=== PATIENT | female | born 1940 | race Caucasian/White ===

== ENCOUNTER 2025-01-08 14:46 | Emergency (ER) | payer MEDICARE, OTHER ==
[~2025-01-08] VITALS: Ht 147.3 cm; Wt 69.9 kg
[2025-01-08 15:03] LABS: BLOOD/HGB, URINE NEGATIVE (Negative); KETONE, URINE NEGATIVE (Negative); LEUK ESTERASE, URINE SMALL (negative); NITRITE, URINE POSITIVE (negative)
[2025-01-08] MEDS ORDERED: ATORVASTATIN CA40 MG PO (15:09)
[2025-01-08] MEDS ORDERED: PREGABALIN25 MG PO (15:09)
[2025-01-08] MEDS ORDERED: POTASSIUM CHLOR8 ME1 PO (15:09)
[2025-01-08] MEDS ORDERED: ALENDRONATE SOD70 MG PO (15:09)
[2025-01-08] MEDS ORDERED: COLCRYS0.6 MG PO (15:09)
[2025-01-08] MEDS ORDERED: DIPHENOXYLATE-1 EACH PO (15:10)
[2025-01-08] MEDS ORDERED: TORSEMIDE10 MG PO (15:10)
[2025-01-08] MEDS ORDERED: SERTRALINE HCL100 MG PO (15:10)
[2025-01-08] MEDS ORDERED: HUMALOG100 UNIT/2 SUB-Q (15:10)
[2025-01-08] MEDS ORDERED: LISINOPRIL20 MG PO (15:10)
[2025-01-08] MEDS ORDERED: OXYCODONE-ACET1 EAC1 PO (15:10)
[2025-01-08] MEDS ORDERED: OMEPRAZOLE20 MG PO (15:10)
[2025-01-08] MEDS ORDERED: SOLIFENACIN SUC10 MG PO (15:11)
[2025-01-08] MEDS ORDERED: VENTOLIN HFA18 GM INH (15:11)
[2025-01-08] MEDS ORDERED: FISH OIL 1,201200 MG PO ×2 (15:12→15:51)
[2025-01-08] MEDS ORDERED: CINNAMON500 MG PO (15:12)
[2025-01-08 15:13] LABS: EPITHELIAL CELLS, URINE SQUAMOUS 2+ /lpf (0-1+)
[2025-01-08 15:14] LABS: CRYSTALS, URINE NONE SEEN (0-1+); REFLEX CULTURE, URINE No (No)
[2025-01-08 15:16] LABS: BACTERIA, URINE 3+ /hpf (negative); CASTS, URINE HYALINE 1+ \\lpf
[2025-01-08] MEDS ORDERED: LANTUS100 UNITS/ SUB-Q (15:52)
[2025-01-08] MEDS ORDERED: NOVOLOG100 UNIT/2 SUB-Q (15:53)
[2025-01-08] MEDS ORDERED: NITROFURANTOIN MONOHYD MACROCR 100 MG CAP PO ONE (17:00)
[2025-01-08] MEDS ORDERED: MACROBID 100 M100 MG PO (17:09)
[2025-01-08 17:14] VITALS: BP 156/69
== END 2025-01-08 17:14 | disposition home or self-care (01) ==
LOC: ED 14:46
PROVIDERS: Emergency Medicine
DX: N39.0 Urinary tract infection, site not specified (principal); E11.9 Type 2 diabetes mellitus without complications; Z79.4 Long term (current) use of insulin; Z79.899 Other long term (current) drug therapy
CPT/HCPCS: 81001; 99283

== ENCOUNTER 2025-01-29 12:06 | Emergency (ER) | payer MEDICARE, OTHER ==
[~2025-01-29] VITALS: Ht 147.3 cm; Wt 75.0 kg
[~2025-01-29 12:06] MED LIST: ALENDRONATE SOD70 MG PO; ATORVASTATIN CA40 MG PO; CINNAMON500 MG PO; COLCRYS0.6 MG PO; DIPHENOXYLATE-1 EACH PO; FISH OIL 1,201200 MG PO; HUMALOG100 UNIT/2 SUB-Q; LANTUS100 UNITS/ SUB-Q; LISINOPRIL20 MG PO; MACROBID 100 M100 MG PO; NOVOLOG100 UNIT/2 SUB-Q; OMEPRAZOLE20 MG PO; OXYCODONE-ACET1 EAC1 PO; POTASSIUM CHLOR8 ME1 PO; PREGABALIN25 MG PO; SERTRALINE HCL100 MG PO; SOLIFENACIN SUC10 MG PO; TORSEMIDE10 MG PO; VENTOLIN HFA18 GM INH
--- OUTSIDE RECORDS SUMMARY | 2025-01-29 12:12 | XMS ---
PreManage Notification: YOMI TOSCANO Security Chinchilla Farmer Events No recent Security Events currently on file CRITERIA MET - [facility] - 2 Visits in 30 Days CARE PROVIDERS DEREK SERRA Internal Medicine Current PHONE: Unknown CANDY WADE Internal Medicine Current PHONE: [phone] SANTOS RICHARD Nurse Practitioner: Current PHONE: [phone] [facility] has no Care Guidelines for this patient. Alivia VISIT COUNT (12 MO.) 2 [facility]ANNA[facility] [place] [facility] [place] [facility] TOTAL 4 NOTE: Visits indicate total known visits. 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 unable to walk 03/15/2024 08:27 Zoe ELAINE TYPE: Emergency COMPLAINT: - Back Pain, "[place] a pop" INPATIENT VISIT TRACKING (12 MO.) 06/08/2024 01:42 Zoe ELAINE TYPE: Acute Care COMPLAINT: - lt sided fall. unable to walk DIAGNOSES: 1. Stable burst fracture of unspecified lumbar vertebra, initial encounter for closed fracture [email or web address]
[2025-01-29] MEDS ORDERED: SODIUM CHLORIDE 0.9% 500 ML IV ONE (12:30)
[2025-01-29 12:35] LABS: BASOPHILS 0.3 % (0.1-1.2); EOSINOPHILS 0.3 % (0.7-5.8); LYMPHOCYTES 19.9 % (19.3-51.7); MCH 32.3 PG (25.6-32.2); MCHC 32.0 g/dL (32.2-35.5); MCV 101.0 fL (79.4-94.8); MONOCYTES 4.9 % (4.7-12.5); NEUTROPHILS 74.2 % (34.0-71.1); RBC 3.87 M/uL (3.93-5.22)
[2025-01-29 12:52] LABS: ALT (SGPT) 30.0 U/L (14-59); AST (SGOT) 37.0 U/L (15-37); GLOMERULAR FILTRATION RATE,EST 47.0 mL/min (>60); PROTEIN, TOTAL 6.0 g/dL (6.4-8.2); UREA NITROGEN 23.0 mg/dL (7-18)
[2025-01-29] MEDS ORDERED: LANREOTIDE (13:05)
[2025-01-29] MEDS ORDERED: SODIUM CHLORIDE 0.9% 500 ML IV PRN (13:15)
[2025-01-29] MEDS ORDERED: DEXTROSE 5% IV SCH (13:15)
[2025-01-29 13:38] LABS: BLOOD/HGB, URINE NEGATIVE (Negative); KETONE, URINE NEGATIVE (Negative); LEUK ESTERASE, URINE SMALL (negative); NITRITE, URINE POSITIVE (negative)
[2025-01-29 13:43] LABS: CRYSTALS, URINE NONE SEEN (0-1+); EPITHELIAL CELLS, URINE SQUAMOUS 2+ /lpf (0-1+)
[2025-01-29 13:44] LABS: BACTERIA, URINE 4+ /hpf (negative); CASTS, URINE NONE SEEN \\lpf; REFLEX CULTURE, URINE No (No)
[2025-01-29] MEDS ORDERED: DEXTROSE 50% 50 ML SYR IV ONE (13:45)
[2025-01-29 15:29] LABS: BLOOD/HGB, URINE NEGATIVE (Negative); KETONE, URINE NEGATIVE (Negative); LEUK ESTERASE, URINE SMALL (negative); NITRITE, URINE POSITIVE (negative)
[2025-01-29 16:15] LABS: BACTERIA, URINE 4+ /hpf (negative); CASTS, URINE NONE SEEN \\lpf; CRYSTALS, URINE NONE SEEN (0-1+); EPITHELIAL CELLS, URINE SQUAMOUS 1+ /lpf (0-1+); REFLEX CULTURE, URINE Yes (No)
[2025-01-29] MEDS ORDERED: CEFDINIR300 MG PO (17:39)
[2025-01-29] MEDS ORDERED: NYSTOP60 GM TOP (17:39)
[2025-01-29 17:49] VITALS: BP 138/78
== END 2025-01-29 17:49 | disposition home or self-care (01) ==
LOC: ED 12:06
PROVIDERS: Emergency Medicine
DX: N39.0 Urinary tract infection, site not specified (principal); E11.649 Type 2 diabetes mellitus with hypoglycemia without coma; Z79.899 Other long term (current) drug therapy; Z79.4 Long term (current) use of insulin
CPT/HCPCS: 36415; 51701; 71045; 80053; 81001; 83735; 85025; 87088; 96361; 96365; 96375; 96376; 99284-25; J0696; J2405; J7040

== ENCOUNTER 2025-04-18 12:06 | Emergency (ER) | payer MEDICARE, OTHER ==
[~2025-04-18] VITALS: Ht 147.3 cm; Wt 75.0 kg
--- OUTSIDE RECORDS SUMMARY | ~2025-04-18 | XMS | Continuity of Care Document ---
Demographics + + + | Address | [address] | | | [place] [address] | + + + | Preferred Language | Unknown | + + + | Marital Status | | + + + | Spiritism Affiliation | Unknown | + + + | Race | White | + + + | Ethnic Group | Not or | + + + Author + + + | Author | [facility] | + + + | Organization | [facility] | + + + | Address | [address] | | | [place] [address] | + + + | Phone | | + + + Care Team Providers + + + + | Care Digital Court Reporter Name | Role | Phone | + + + + Unavailable | Unavailable | + + + + Unavailable | Unavailable | + + + + Allergies No information. Encounters No information. Functional Status No information. Immunizations + + + + | date | description | facility | + + + + | (no date) | No vaccine administered | [facility] | | | | [facility] | + + + + Medications + + + + | date | description | facility | + + + + | (no date) | acetaminophen 325 MG / | [facility] | | | oxycodone hydrochloride 5 | [facility] | | | MG Oral Tab | | + + + + | (no date) | atropine sulfate 0.025 MG | [facility] | | | / diphenoxylate | [facility] | | | hydrochloride 2.5 | | + + + + | (no date) | 3 ML insulin lispro 100 | [facility] | | | UNT/ML Pen Injector | [facility] | | | [Humalog] | | + + + + | (no date) | omeprazole 20 MG Delayed | [facility] | | | Release Oral Capsule | [facility] | + + + + | (no date) | torsemide 10 MG Oral | [facility] | | | Tablet | [facility] | + + + + | 2025-01-29 00:00 | cefdinir 300 MG Oral | [facility] | | | Capsule | [facility] | + + + + | 2025-01-29 00:00 | nystatin 100 UNT/MG | [facility] | | | Topical Powder [Nystop] | [facility] | + + + + | (no date) | insulin glargine 100 | [facility] | | | UNT/ML Injectable Solution | [facility] | | | [Lantus] | | + + + + | (no date) | potassium chloride 8 MEQ | [facility] | | | Extended Release Oral | [facility] | | | Tablet | | + + + + | (no date) | sertraline 100 MG Oral | [facility] | | | Tablet | [facility] | + + + + | (no date) | lisinopril 20 MG Oral | [facility] | | | Tablet | [facility] | + + + + | (no date) | insulin aspart, human 100 | [facility] | | | UNT/ML Injectable Solution | [facility] | | | [NovoLo | | + + + + | (no date) | cinnamon bark 500 MG Oral | [facility] | | | Capsule | [facility] | + + + + | (no date) | solifenacin succinate 10 | [facility] | | | MG Oral Tablet | [facility] | + + + + | (no date) | pregabalin 25 MG Oral | [facility] | | | Capsule | [facility] | + + + + | (no ) | atorvastatin 40 MG Oral | [facility] | | | Tablet | [facility] | + + + + | (no date) | 0.2 ML lanreotide 300 | [facility] | | | MG/ML Prefilled Syringe | [facility] | + + + + | (no ) | colchicine 0.6 MG Oral | [facility] | | | Tablet [Colcrys] | [facility] | + + + + | (no ) | [id number] 200 ACTUAT | [facility] | | | albuterol 0.09 MG/ACTUAT | [facility] | | | Metered Dose I | | + + + + | (no ) | alendronic acid 70 MG Oral | [facility] | | | Tablet | [facility] | + + + + Problems + + + + | date | description | facility | + + + + | 2025-01-29 00:00 | Hypoglycemia | [facility] | | | | [facility] | + + + + Procedures No information. Results/Labs +--------+--------+ +---------+--------+---------+ | test | date | facility | value | unit | notes | +--------+--------+ +---------+--------+---------+ + + | Result panel 1 | + + + + + +--------+ + + | Blood | 2025-01-29 | | 7.75 | (missing) | (missing) | | leukocytes | 12:27 | [facility] | | | | | automated | [facility] count | [facility] | | | | | (number/volu | | Hospital | | | | | me) | | | | | | + + + +--------+ + + + + | Result panel 2 | + + + + + +--------+ + + | Blood | 2025-01-29 | | 3.87 | (missing) | (missing) | | erythrocytes | 12:27 | [facility] | | | | | automated | [facility] | count | | [facility] | | | | | (number/volu | | Hospital | | | | | me) | | | | | | + + + +--------+ + + + + | Result panel 3 | + + + + + +--------+ + + | Blood | 2025-01-29 | | 12.5 | (missing) | (missing) | | hemoglobin | 12:27 | [facility] | | | | | measurement | | [facility] | | | | (mass/volume | | [facility] | | | | ) | | [facility] | | | | + + + +--------+ + + + + | Result panel 4 | + + + + + +--------+ + + | Automated | 2025-01-29 | | 39.1 | (missing) | (missing) | | blood | 12:27 | [facility] | | | | | hematocrit | [facility] | | [facility] | | | | + + + +--------+ + + + + | Result panel 5 | + + + + + +---------+ + + | Automated | 2025-01-29 | | 101.0 | (missing) | (missing) | | erythrocyte | 12:27 | [facility] | | | | | mean | | [facility] | | | | | corpuscular | | [facility] | | | | volume | | [facility] | | | | + + + +---------+ + + + + | Result panel 6 | + + + + + +--------+ + + | Automated | 2025-01-29 | | 32.3 | (missing) | (missing) | | erythrocyte | 12:27 | [facility] | | | | | mean | | - [facility] | | | | | corpuscular | | [facility] | | | | | hemoglobin | | Hospital | | | | | (mass per | | | | | | | erythrocyte) | | | | | | | | | | | | | + + + +--------+ + + + + | Result panel 7 | + + + + + +--------+ + + | Automated | 2025-01-29 | | 32.0 | (missing) | (missing) | | erythrocyte | 12:27 | [facility] | | | | | mean | | - [facility] | | | | | corpuscular | | [facility] | | | | | hemoglobin | | Hospital | | | | | concentratio | | | | | | | n | | | | | | | measurement | | | | | | | (mass/volume | | | | | | | ) | | | | | | + + + +--------+ + + + + | Result panel 8 | + + + + + +-------+ + + | Automated | 2025-01-29 | | 271 | (missing) | (missing) | | blood | 12:27 | [facility] | | | | | platelet | [facility] | count | | [facility] | | | | | (count/volum | | Hospital | | | | | e) | | | | | | + + + +-------+ + + + + | Result panel 9 | + + + + + +--------+ + + | Automated | 2025-01-29 | | 74.2 | (missing) | (missing) | | blood | 12:27 | [facility] | | | | | neutrophil | | [facility] | | | | | count as | | [facility] | | | | | percentage | | Hospital | | | | | of total | | | | | | | leukocytes | | | | | | + + + +--------+ + + + + | Result panel 10 | + + + + + +--------+ + + | Automated | 2025-01-29 | | 19.9 | (missing) | (missing) | | blood | 12:27 | [facility] | | | | | lymphocyte | | - [facility] | | | | | count as | | [facility] | | | | | percentage | | Hospital | | | | | ot total | | | | | | | leukocytes | | | | | | + + + +--------+ + + + + | Result panel 11 | + + + + + +-------+ + + | Automated | 2025-01-29 | | 4.9 | (missing) | (missing) | | blood | 12:27 | [facility] | | | | | monocyte | | - [facility] | | | | | count as | | [facility] | | | | | percentage | | Hospital | | | | | of total | | | | | | | leukocytes | | | | | | + + + +-------+ + + + + | Result panel 12 | + + + + + +-------+ + + | Automated | 2025-01-29 | | 0.3 | (missing) | (missing) | | blood | 12:27 | [facility] | | | | | eosinophil | | - [facility] | | | [facility] | count as | | [facility] | | | | | percentage | | Hospital | | | | | of total | | | | | | | leukocytes | | | | | | + + + +-------+ + + + + | Result panel 13 | + + + + + +-------+ + + | Automated | 2025-01-29 | | 0.3 | (missing) | (missing) | | blood | 12:27 | [facility] | | | | | basophil | | - [facility] | | [facility] | count as | | [facility] | | | | | percentage | | Hospital | | | | | of total | | | | | | | leukocytes | | | | | | + + + +-------+ + + + + | Result panel 14 | + + + + + +------+ + + | Serum or | 2025-01-29 | | 61 | (missing) | (missing) | | plasma | 12:27 | [facility] | | | | | glucose | | - [facility] | | [facility] | measurement | | [facility] | | | | | (mass/volume | | Hospital | | | | | ) | | | | | | + + + +------+ + + + + | Result panel 15 | + + + + + +------+ + + | Serum or | 2025-01-29 | | 23 | (missing) | (missing) | | plasma urea | 12:27 | [facility] | | | | | nitrogen | | - [facility] | | [facility] | measurement | | [facility] | | | | | (mass/volume | | Hospital | | | | | ) | | | | | | + + + +------+ + + + + | Result panel 16 | + + + + + +--------+ + + | Serum or | 2025-01-29 | | 1.16 | (missing) | (missing) | | plasma | 12:27 | [facility] | | | | | creatinine | | - [facility] | | | | | measurement | | [facility] | | | | | (mass/volume | | Hospital | | | | | ) | | | | | | + + + +--------+ + + + + | Result panel 17 | + + + + + +------+ + + | Glomerular | 2025-01-29 | | 47 | (missing) | (missing) | | filtration | 12:27 | [facility] | | | | | rate/1.73 sq | | - [facility] | | | | | M.predicted | | [facility] | | | | | [Volume | | Hospital | | | | | Rate/Area] | | | | | | | inSerum, | | | | | | | Plasma or | | | | | | | Blood by | | | | | | | Creatinine-b | | | | | | | ased formula | | | | | | | (CKD-EPI | | | | | | | 2020) | | | | | | + + + +------+ + + + + | Result panel 18 | + + + + + +---------+ + + | Serum or | 2025-01-29 | | 19.82 | (missing) | (missing) | | plasma urea | 12:27 | [facility] | | | | | nitrogen/cre | | - [facility] | | | | | atinine mass | | [facility] | | | | | ratio | | Hospital | | | | + + + +---------+ + + + + | Result panel 19 | + + + + + +-------+ + + | Serum or | 2025-01-29 | | 140 | (missing) | (missing) | | plasma | 12:27 | [facility] | | | | | sodium | | - [facility] | | | | | measurement | | [facility] | | | | | (moles/volum | | Hospital | | | | | e) | | | | | | + + + +-------+ + + + + | Result panel 20 | + + + + + +-------+ + + | Serum or | 2025-01-29 | | 3.9 | (missing) | (missing) | | plasma | 12:27 | [facility] | | | | | potassium | | - [facility] | | | | | measurement | | [facility] | | | | | (moles/volum | | Hospital | | | | | e) | | | | | | + + + +-------+ + + + + | Result panel 21 | + + + + + +-------+ + + | Serum or | 2025-01-29 | | 105 | (missing) | (missing) | | plasma | 12:27 | [facility] | | | | | chloride | | - [facility] | | | | | measurement | | [facility] | | | | | (moles/volum | | Hospital | | | | | e) | | | | | | + + + +-------+ + + + + | Result panel 22 | + + + + + +------+ + + | Serum or | 2025-01-29 | | 28 | (missing) | (missing) | | plasma | 12:27 | [facility] | | | | | carbon | | - [facility] | | | | | dioxide, | | [facility] | | | | | total | | Hospital | | | | | measurement | | | | | | | (moles/volum | | | | | | | e) | | | | | | + + + +------+ + + + + | Result panel 23 | + + + + + +--------+ + + | Serum or | 2025-01-29 | | 10.9 | (missing) | (missing) | | plasma anion | 12:27 | [facility] | | | | | gap 4 | [facility] | | | | | | [facility] | | | | + + + +--------+ + + + + | Result panel 24 | + + + + + +-------+ + + | Serum or | 2025-01-29 | | 8.3 | (missing) | (missing) | | plasma | 12:27 | [facility] | | | | | calcium | | - [facility] | | | | | measurement | | [facility] | | | | | (mass/volume | | Hospital | | | | | ) | | | | | | + + + +-------+ + + + + | Result panel 25 | + + + + + +-------+ + + | Serum or | 2025-01-29 | | 2.0 | (missing) | (missing) | | plasma | 12:27 | [facility] | | | | | magnesium | | - [facility] | | | | | measurement | | [facility] | | | | | (mass/volume | | Hospital | | | | | ) | | | | | | + + + +-------+ + + + + | Result panel 26 | + + + + + +-------+ + + | Serum or | 2025-01-29 | | 6.0 | (missing) | (missing) | | plasma | 12:27 | [facility] | | | | | protein | | - [facility] | | | | | measurement | | [facility] | | | | | (mass/volume | | Hospital | | | | | ) | | | | | | + + + +-------+ + + + + | Result panel 27 | + + + + + +-------+ + + | Serum or | 2025-01-29 | | 2.7 | (missing) | (missing) | | plasma | 12:27 | [facility] | | | | | albumin | | - [facility] | | | | | measurement | | [facility] | | | | | (mass/volume | | Hospital | | | | | ) | | | | | | + + + +-------+ + + + + | Result panel 28 | + + + + + +-------+ + + | Serum | 2025-01-29 | | 3.3 | (missing) | (missing) | | globulin | 12:27 | [facility] | | | | | measurement | | - [facility] | | | | | (mass/volume | | [facility] | | | | | ) | | Hospital | | | | + + + +-------+ + + + + | Result panel 29 | + + + + + +--------+ + + | Serum or | 2025-01-29 | | 0.82 | (missing) | (missing) | | plasma | 12:27 | [facility] | | | | | albumin/glob | | - [facility] | | | | | ulin mass | | [facility] | | | | | ratio | | Hospital | | | | + + + +--------+ + + + + | Result panel 30 | + + + + + +-------+ + + | Serum or | 2025-01-29 | | 0.6 | (missing) | (missing) | | plasma total | 12:27 | [facility] | | | | | bilirubin | | - [facility] | | | | | measurement | | [facility] | | | | | (mass/volume | | Hospital | | | | | ) | | | | | | + + + +-------+ + + + + | Result panel 31 | + + + + + +------+ + + | Serum or | 2025-01-29 | | 37 | (missing) | (missing) | | plasma | 12:27 | [facility] | | | | | aspartate | | - [facility] | | | | | aminotransfe | | [facility] | | | | | rase | | Hospital | | | | | measurement | | | | | | | (enzymatic | | | | | | | activity/vol | | | | | | | ume) | | | | | | + + + +------+ + + + + | Result panel 32 | + + + + + +------+ + + | Serum or | 2025-01-29 | | 30 | (missing) | (missing) | | plasma | 12:27 | [facility] | | | | | alanine | | - [facility] | | | | | aminotransfe | | [facility] | | | | | rase | | Hospital | | | | | measurement | | | | | | | (enzymatic | | | | | | | activity/vol | | | | | | | ume) | | | | | | + + + +------+ + + + + | Result panel 33 | + + + + + +-------+ + + | Serum or | 2025-01-29 | | 180 | (missing) | (missing) | | plasma | 12:27 | [facility] | | | | | alkaline | | - [facility] | | | | | phosphatase | | [facility] | | | | | measurement | | Hospital | | | | | (enzymatic | | | | | | | activity/vol | | | | | | | ume) | | | | | | + + + +-------+ + + + + | Result panel 34 | + + + + + + + + + | Protein | 2025-01-29 | | NEGATIVE | (missing) | (missing) | | urine test | 14:30 | [facility] | | | | | strip | | - [facility] | | | | | | | [facility] | | | | | | [facility] | | | | + + + + + + + + + | Result panel 35 | + + + + + + + + + | | 2025-01-29 | | NORMAL | (missing) | (missing) | | Urobilinogen | 14:30 | [facility] | | | | | | | - [facility] | | | | | [Mass/volume | | [facility] | | | | | ] in Urine | | Hospital | | | | | by Test | | | | | | | strip | | | | | | + + + + + + + + + | Result panel 36 | + + + + + + + + + | Urine | 2025-01-29 | | POSITIVE | (missing) | (missing) | | nitrite | 14:30 | [facility] | | | | | detection by | | - [facility] | | | | | test strip | | [facility] | | | | | | [facility] | | | | + + + + + + + + + | Result panel 37 | + + + + + +---------+ + + | Urine | 2025-01-29 | | SMALL | (missing) | (missing) | | leukocyte | 14:30 | [facility] | | | | | esterase | | - [facility] | | | | | detection by | | [facility] | | | | | dipstick | | Hospital | | | | + + + +---------+ + + + + | Result panel 38 | + + + + + +-------+ + + | Automated | 2025-01-29 | | 0-1 | (missing) | (missing) | | urine | 14:30 | [facility] | | | | | sediment | | - [facility] | | | | | erythrocyte | | [facility] | | | | | count by | | Hospital | | | | | microscopy | | | | | | | (number/high | | | | | | | power | | | | | | | field) | | | | | | + + + +-------+ + + + + | Result panel 39 | + + + + + +---------+ + + | Automated | 2025-01-29 | | 41-50 | (missing) | (missing) | | urine | 14:30 | [facility] | | | | | sediment | | - [facility] | | | | | leukocyte | | [facility] | | | | | count by | | Hospital | | | | | microscopy | | | | | | | (number/high | | | | | | | power | | | | | | | field) | | | | | | + + + +---------+ + + + + | Result panel 40 | + + + + + + + + + | Automated | 2025-01-29 | | SQUAMOUS 1+ | (missing) | (missing) | | urine | 14:30 | [facility] | | | | | sediment | | - [facility] | | | | | epithelial | | [facility] | | | | | cell count | | Hospital | | | | | by | | | | | | | microscopy | | | | | | | (number/high | | | | | | | power | | | | | | | field) | | | | | | + + + + + + + + + | Result panel 41 | + + + + + + + + + | Crystal | 2025-01-29 | | NONE SEEN | (missing) | (missing) | | typing in | 14:30 | [facility] | | | | | urine | | - [facility] | | | | | sediment by | | [facility] | | | | | light | | Hospital | | | | | microscopy | | | | | | + + + + + + + + + | Result panel 42 | + + + + + +------+ + + | Automated | 2025-01-29 | | 4+ | (missing) | (missing) | | urine | 14:30 | [facility] | | | | | sediment | | - [facility] | | | | | bacteria | | [facility] | | | | | count by | | Hospital | | | | | microscopy | | | | | | | (number/high | | | | | | | power | | | | | | | field) | | | | | | + + + +------+ + + + + | Result panel 43 | + + + + + + + + + | Automated | 2025-01-29 | | NONE SEEN | (missing) | (missing) | | casts count | 14:30 | [facility] | | | | | in urine | | - [facility] | | | | | sediment by | | [facility] | | | | | microscopy | | Hospital | | | | | low power | | | | | | | field | | | | | | | (number/area | | | | | | | ) | | | | | | + + + + + + + + + | Result panel 44 | + + + + + + + + + | Color of | 2025-01-29 | | YELLOW | (missing) | (missing) | | Urine by | 14:30 | [facility] | | | | | Auto | | - [facility] | | | | | | | [facility] | | | | | | [facility] | | | | + + + + + + + + + | Result panel 45 | + + + + + +-------+ + + | Reflexive | 2025-01-29 | | Yes | (missing) | (missing) | | urine | 14:30 | [facility] | | | | | bacterial | | - [facility] | | | | | culture | | [facility] | | | | | | [facility] | | | | + + + +-------+ + + + + | Result panel 46 | + + + + + + + + + | Urinalysis | 2025-01-29 | | CLEAN CATCH | (missing) | (missing) | | specimen | 14:30 | [facility] | | | | | collection | [facility] - [facility] | | | | | method | | [facility] | | [facility] | | | [facility] | | | | + + + + + + + + + | Result panel 47 | + + + + + +---------+ + + | Character | 2025-01-29 | | CLEAR | (missing) | (missing) | | of Urine | 14:30 | [facility] | | | | | | | - [facility] | | | | | | | [facility] | | | | | | [facility] | | | | + + + +---------+ + + + + | Result panel 48 | + + + + + + + + + | Glucose | 2025-01-29 | | NEGATIVE | (missing) | (missing) | | [Presence] | 14:30 | [facility] | | | | | in Urine by | | - [facility] | | | | | Test strip | | [facility] | | [facility] | | | [facility] | | | | + + + + + + + + + | Result panel 49 | + + + + + + + + + | Urine total | 2025-01-29 | | NEGATIVE | (missing) | (missing) | | bilirubin | 14:30 | [facility] | | | | | detection by | | - [facility] | | | | | test strip | | [facility] | | [facility] | | | [facility] | | | | + + + + + + + + + | Result panel 50 | + + + + + + + + + | Urine | 2025-01-29 | | NEGATIVE | (missing) | (missing) | | ketones | 14:30 | [facility] | | | | | detection by | | - [facility] | | | | | test strip | | [facility] | [facility] | | [facility] | | | | + + + + + + + + + | Result panel 51 | + + + + + + + + + | Specific | 2025-01-29 | | <=1.005 | (missing) | (missing) | | gravity ur | 14:30 | [facility] | | | | | dipstick | | - [facility] | | | | | | | [facility] | | | | | | [facility] | | | | + + + + + + + + + | Result panel 52 | + + + + + + + + + | Urine | 2025-01-29 | | NEGATIVE | (missing) | (missing) | | hemoglobin | 14:30 | [facility] | | | | | detection by | | - [facility] | | | | | test strip | | [facility] | [facility] | [facility] | | | | + + + + + + + + + | Result panel 53 | + + + + + +-------+ + + | Urine pH | 2025-01-29 | | 6.5 | (missing) | (missing) | | measurement | 14:30 | [facility] | | | | | by test | | - [facility] | | | | | strip | | [facility] | | [facility] | | | [facility] | | | | + + + +-------+ + + + + | Result panel 54 | + + + + + +------+ + + | Whole blood | 2025-01-29 | | 86 | (missing) | (missing) | | glucose | 16:18 | [facility] | | | | | measurement | | - [facility] | | | | | using | | [facility] | | | | | handheld | | Hospital | | | | | analyzer | | | | | | | (mass/volume | | | | | | | ) | | | | | | + + + +------+ + + Social History + + + + | date | description | facility | + + + + | (no date) | Unknown if ever smoked | [facility] | | | | [facility] | + + + + Vital Signs No information."
[~2025-04-18 12:06] MED LIST changes: +CEFDINIR300 MG PO; +INDAPAMIDE1.25 MG PO; +LANREOTIDE; +NYSTOP60 GM TOP
[2025-04-18 12:54] LABS: BASOPHILS 0.9 % (0.1-1.2); EOSINOPHILS 1.8 % (0.7-5.8); LYMPHOCYTES 23.9 % (19.3-51.7); MCH 32.1 PG (25.6-32.2); MCHC 32.6 g/dL (32.2-35.5); MCV 98.5 fL (79.4-94.8); MONOCYTES 7.4 % (4.7-12.5); NEUTROPHILS 65.7 % (34.0-71.1); RBC 3.92 M/uL (3.93-5.22)
[2025-04-18 13:07] LABS: INR 0.99 (0.80-1.30); PROTIME 12.4 Sec (11.2-14.2)
[2025-04-18 13:13] LABS: ALT (SGPT) 289.0 U/L (14-59); AST (SGOT) 157.0 U/L (15-37); GLOMERULAR FILTRATION RATE,EST 46.0 mL/min (>60); PROTEIN, TOTAL 7.0 g/dL (6.4-8.2); UREA NITROGEN 16.0 mg/dL (7-18)
[2025-04-18 13:16] LABS: LACTIC ACID, BLOOD 1.3 mmol/L (0.4-2.0)
[2025-04-18 14:02] LABS: BLOOD/HGB, URINE TRACE-I (Negative); KETONE, URINE NEGATIVE (Negative); LEUK ESTERASE, URINE NEGATIVE (negative); NITRITE, URINE NEGATIVE (negative)
[2025-04-18 14:08] LABS: BACTERIA, URINE NONE SEEN /hpf (negative); CASTS, URINE NONE SEEN \\lpf; CRYSTALS, URINE NONE SEEN (0-1+); EPITHELIAL CELLS, URINE SQUAMOUS 1+ /lpf (0-1+); REFLEX CULTURE, URINE No (No)
[2025-04-18 17:33] VITALS: BP 177/66
[2025-05-08] MEDS ORDERED: FISH OIL 1,2001 EACH PO (15:09)
[2025-05-08] MEDS ORDERED: PERCOCET 5-3251 EACH PO (15:09)
[2025-05-08] MEDS ORDERED: VITAMIN D350 MCG PO (15:10)
[2025-05-09] MEDS ORDERED: PROBIOTIC1 EAC8 PO (09:16)
== END 2025-04-18 17:34 | disposition home or self-care (01) ==
LOC: ED 12:06
PROVIDERS: Emergency Medicine
DX: R41.82 Altered mental status, unspecified (principal); E11.9 Type 2 diabetes mellitus without complications; Z79.899 Other long term (current) drug therapy; Z79.4 Long term (current) use of insulin; K86.2 Cyst of pancreas
CPT/HCPCS: 36415; 70450; 74177; 80053; 81001; 83605; 85025; 85610; 99285-25